=== PATIENT | male | born 1960 | race Caucasian/White ===

== ENCOUNTER 2017-06-12 19:07 | Observation (INO) | payer OTHER ==
[~2017-06-12] VITALS: Ht 177.8 cm; Wt 130.2 kg
[~2017-06-12 19:07] MED LIST: ACETAMINOPHEN-1 EAC1; ANDROGEL75 GM; EFFIENT10 MG PO; FLEXERIL; HYDROCODON-ACE1 EAC7 PO; LIPITOR20 MG PO; LO-DOSE ASPIRIN81 M1 PO; NITROSTAT0.4 M1 SUBLING; PANTOPRAZOLE SO40 M1 PO; SORINE 80 MG TA80 M1 PO; TOPROL; TOPROL XL50 MG PO; ZOFRAN4 MG PO
[2017-06-12 19:09] VITALS: BP 164/85
[2017-06-12 19:39] LABS: HEMATOCRIT 45.4 % (42.0-52.0); HEMOGLOBIN 15.6 gm/dL (14.0-18.0); MCH 29.6 pg (26.0-34.0); MCHC 34.4 g/dL (28.0-37.0); MPV 8.4 fl. (7.2-11.1); NUCLEATED RBCS 0 /100WBC; PLATELET COUNT* 165 thou/uL (150-400); RBC 5.28 mil/uL (4.50-6.00); RDW-CV 14.1 % (10.5-14.5); WBC 5.2 thou/uL (4.0-11.0)
[2017-06-12 19:57] LABS: ANION GAP 11 mmol/L (7-16); BUN 17 mg/dL (7-18); CALCIUM 8.7 mg/dL (8.5-10.1); CHLORIDE 103 mmol/L (98-107); CO2 29 mmol/L (21-32); CREATININE 1.1 mg/dL (0.6-1.3); GLUCOSE 105 mg/dL (70-99); POTASSIUM 3.7 mmol/L (3.5-5.1); SODIUM 143 mmol/L (136-145)
[2017-06-12 20:02] LABS: PROTIME 9.9 Seconds (9.20-11.50)
[2017-06-12 20:07] LABS: ALBUMIN 3.6 g/dL (3.4-5.0); ALKALINE PHOSPHATASE 98 U/L (46-116); LIPASE 136 U/L (73-393); NT-PRO BRAIN NAT PEPTIDE 59 pg/mL (<300); SGOT 27 U/L (15-37); SGPT 43 U/L (30-65); TOTAL BILIRUBIN 0.6 mg/dL (<0.1-1.0); TOTAL PROTEIN 7.6 g/dL (6.4-8.2); TROPONIN-I LEVEL <0.06 ng/mL (<0.06)
[2017-06-12 20:14] LABS: ABSOLUTE BASOPHILS 0.1 thou/uL (0.0-0.2); ABSOLUTE EOSINOPHILS 0.2 thou/uL (0.0-0.7); ABSOLUTE LYMPHOCYTES 1.7 thou/uL (0.8-5.3); ABSOLUTE MONOCYTES 0.5 thou/uL (0.0-1.2); ABSOLUTE NEUTROPHILS 2.7 thou/uL (1.6-8.1); PLATELET ESTIMATE ADEQUATE
[2017-06-12 20:15] LABS: ATYPICAL LYMPHS 23 %
[2017-06-12 22:40] LABS: INFLUENZA A ANTIGEN None Detected (None Detect); INFLUENZA B ANTIGEN None Detected (None Detect)
[2017-06-12 22:50] VITALS: BP 115/63
[2017-06-12 23:09] VITALS: BP 116/73
[2017-06-13] VITALS (7 sets, daily range): BP systolic 110–131; BP diastolic 69–77
--- NOTE | 2017-06-13 01:40 | NUR ---
ASSUMED CARE OF PT AT 2255 FROM THE ER. PT IS ALERT AND ORIENTED. VSS. PERRLA. NO COMPLAINTS OF PAIN. PT DENIES CHEST PAIN. PT IS IN SINUS RYTHM ON THE TELEMETRY. PT IS RESTING COMFORTABLY IN BED. RESPIRATIONS ARE EVEN AND NONLABORED. WILL CONTINUE TO MONITOR PT.
[2017-06-13 05:28] LABS: HEMATOCRIT 44.1 % (42.0-52.0); HEMOGLOBIN 15.2 gm/dL (14.0-18.0); MCH 29.4 pg (26.0-34.0); MCHC 34.5 g/dL (28.0-37.0); MPV 8.4 fl. (7.2-11.1); RBC 5.18 mil/uL (4.50-6.00); RDW-CV 14.4 % (10.5-14.5); WBC 6.5 thou/uL (4.0-11.0)
[2017-06-13 05:44] LABS: ALBUMIN 3.4 g/dL (3.4-5.0); CALCIUM 8.9 mg/dL (8.5-10.1); POTASSIUM 4.1 mmol/L (3.5-5.1); TOTAL BILIRUBIN 0.6 mg/dL (<0.1-1.0); TOTAL PROTEIN 6.7 g/dL (6.4-8.2)
--- NOTE | 2017-06-13 11:30 | NUR ---
MET WITH PT TO DISCUSS HOME SITUATION/DC PLANNING. PT LIVES WITH . IS INDEPENDENT AND ACTIVE, USES NO EQUIPMENT AND HASN'T HAD HH. HE WORKS OUTSIDE THE HOME. PLANS TO RETURN HOME AT DC. DENIES NEEDS
--- NOTE | 2017-06-13 12:00 | EKG ---
[place] [address] ELECTROCARDIOGRAM REPORT Name: MONIKA NOGUEIRA Room: [address] ADM IN M.R.#: [id number] Admission: 06/12/17 Attend Phys: Edward Quigley MD Discharge: Date of : 58 Report #: [id number] THIS REPORT FOR: //name// [facility] ED Test Date: 2017-06-12 Test Time: 19:10:33 Pat Name: MONIKA NOGUEIRA Department: Room: [facility] Gender: M Business Services Tech: PRETTY Littlejohn : 1960 Requested By: Radha Nolasco Order Number: [id number] MD: Elder Mcintyre Measurements Intervals [place] Rate: 73 P: 44 [place]: 192 QRS: 43 QRSD: 98 T: 8 QT: 393 QTc: 433 Interpretive Statements Sinus rhythm Multiple ventricular premature complexes Borderline T abnormalities, inferior leads Compared to ECG 03/22/2015 12:28:24 Ventricular premature complex(es) now present T-wave abnormality now present Atrial fibrillation no longer present Electronically Signed On 06-13-2017 12:00:23 RADIOLOGY RESIDENT by Elder Mcintyre [email or web address] <ELECTRONICALLY SIGNED> By: Elder Mcintyre MD, FAC 06/13/17 1200 09 09 Elder Mcintyre MD, [facility] /EPI
[2017-06-13] MEDS ORDERED: PANTOPRAZOLE SO40 M1 PO (13:45)
--- NOTE | 2017-06-13 14:40 | NUR ---
ASSUMED CARES OF PT AT 0700. PT IN BED, BED IN LOW AND LOCKED POSITION. CALL BUTTON AND PERSONAL ITEMS IN PT REACH. FALL PRECAUTIONS IN PLACE. PT USES CALL BUTTON APPROPRIATELY. PT A&O X4, DOCUMENT PROCESSING SPECIALIST TRACING NSR, LCTAB, VSS ON RA, PT DENIES PAIN AT THIS TIME. SKIN INTACT, AFEBRILE, PERRLA. HOURLY ROUNDS CONTINUE. PT UP INDEPENDENTLY, STEADY GAIT. LFA IV PATENT TO FLUSH, SALINE LOCKED. LABS WNL. PT CHANGED TO OBSERVAITON STATUS. PT CLEARED TO D/C TODAY AND RETURN THURSDAY OUTPATIENT FOR STRESS TEST. PT PROGRESSING TOWARDS GOAL. WILL CONTINUE TO MONITOR PT STATUS AND PROGRESS AND PREPARE PT FOR DISCHARGE HOME TODAY.
--- NOTE | 2017-06-13 19:22 | NUR ---
PT CLEARED FOR DISCHARGE. IV AND TELE REMOVED. PT REMAINS STABLE. PT EDUCATED ON DISCHARGE ORDERS, FOLLOW UP APPTS., MEDS, STROKE S/S AND RISKS. PRESCRIPTION CALLED INTO [facility] PER DR. HAMILTON ORDERS. ALL DISCHARGE DOCUMENTS SIGNED. SPOUSE AT PT SIDE. PT ESCORTED AMBULATORY BY NURSING STAFF TO FRONT OF HOSPITAL TO MEET SPOUSE IN CAR TO GO HOME. ALL QUESIONS ANSWERED. PT DISCHARGED IN STABLE CONDITION AT 1738.
--- NOTE | 2017-06-16 09:13 | CON ---
[address] [address] CONSULTATION Name: MONIKA NOGUEIRA Room: [address] Marilin Ramos#: [id number] Admission: 06/12/17 Attend Phys: Edward Quigley MD Discharge: 06/13/17 Date of : 58 Report #: [id number] THIS REPORT FOR: //name// CC: FRANCIS physician/PCP Edward Quigley REASON FOR CONSULTATION: Granulomatous disease, hilar lymphadenopathy. HISTORY OF PRESENT ILLNESS: The patient is a 57-year-old male patient, known history of coronary artery disease, status post stents. He presented to the Emergency Room and admitted with the chest pain of 2 days duration. The pain radiates to neck and jaw, but no radiation to other parts that was associated with diaphoresis, lightheadedness and feeling of occasional shortness of breath. He reported he took nitro before coming to the ER, and he felt better and the pain resolved. He denied any fever, chills, cough, blood in his stool or any other complaints. During his workup, he had a CT dissection protocol that demonstrated hilar lymphadenopathy and ground metastases. Pulmonary Services were consulted. The patient told me he had pneumonia almost 15 years ago. He grew up in [place] around [place], although he does not have a history of pneumonia as a teenager. 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 He does not remember having chest imaging in the past or CT scan. He denied shortness of breath, wheeze or cough. He smoked for 20 years, but quit almost 15 years ago. He is not on any oxygen or inhaler or diagnosis of lung disease. PAST MEDICAL HISTORY: Coronary artery disease as mentioned above, status post stents. Atrial fibrillation and stent placement. PAST SURGICAL HISTORY: Arthroscopic knee surgery in 1983, wisdom teeth surgery, appendectomy. HOME MEDICATIONS: Lipitor, nitroglycerin and aspirin. ALLERGIES: No known drug allergies. FAMILY HISTORY: Reviewed with the patient, noncontributory. SOCIAL HISTORY: Does not drink alcohol excessively. He smoked for 20 years, but quit almost 15-20 years ago. REVIEW OF SYSTEMS: Twelve system review in the patient negative other than as mentioned above. PHYSICAL EXAMINATION: VITAL SIGNS: On examination, his room air O2 saturation more than 90%, [place] [address] CONSULTATION Name: MONIKA NOGUEIRA Room: [address]#: [id number] Admission: 06/12/17 Attend Phys: Edward Quigley MD Discharge: 06/13/17 Date of : 58 Report #: [id number] pressure 110/69, pulse rate of 58, temperature 36.4. GENERAL: Lying in bed, not in pain, not in distress. HEAD: Normocephalic, atraumatic. EYES: Pupils are equal, reactive to light. Extraocular movement intact, not pale, no jaundice. ENT: External ear looks healthy and normal. Oral cavity: Moist mucous membrane. Mallampati of 2-3. NECK: Supple. No palpable lymph node. No palpable thyroid. Trachea central. CHEST: Clear to auscultation. No wheezes, no crackles. No tenderness. HEART: S1, S2, no murmur. ABDOMEN: Benign, soft, lax, nontender, positive bowel sounds. LOWER EXTREMITIES: No edema, no calf tenderness. SKIN: Normal for age and race. NEUROLOGIC: Moving 4 extremities spontaneously. No focal weakness. PSYCHIATRIC: Mood and affect appropriate. Good insight and judgment. LABORATORY DATA: His chest x-ray in the ER, stable compared to a chest x-ray in 2015, showed some old granulomatous changes. He had a CT of the chest that demonstrated paratracheal bilateral inguinal lymphadenopathy. The largest is 12 mm and in the hilar area 1.4 cm. His white blood count 5.2, hemoglobin 15.6, platelet 165. His INR is 1, and his creatinine is 1. IMPRESSION: 1. Chest pain. 2. Coronary artery disease. 3. Hilar lymphadenopathy. There is no previous chest imaging to compare; however, chest x-ray in comparison to 2015, it was stable. No change in the contour of the mediastinum. Putting things together with the granulomatous changes in his lung parenchyma and lymphadenopathy, this could be related to granulomatous disease; however, another inflammatory process or malignancy could not be ruled out with certainty. I think at this point we need to treat him for his acute issues with coronary artery disease, and I would recommend repeating CT chest with IV contrast after 3 months, likely will need to be followed even afterwards for a couple of years. I did explain to the patient that this could be related to granulomatous disease in the past; however, definitely he needs a followup CT imaging in 3 months from now and afterwards, likely for up to 2 years. I did mention to him that the differential diagnosis can include malignancy. He understood, and I did tell him he can get our office information and come for followup, and we can arrange for the CT scan if he wishes. He reported he will try to arrange through his primary care physician. [address] [address] CONSULTATION Name: MONIKA NOGUEIRA Room: [address] MEscobar.#: [id number] Admission: 06/12/17 Attend Phys: Edward Quigley MD Discharge: 06/13/17 Date of : 58 Report #: [id number] Thank you for the consult. No further recommendations. Please call for questions. <ELECTRONICALLY SIGNED> By: Melissa Amor MD 06/16/17 0913 0857 [id number] Amor MD /nt
--- NOTE | 2017-06-17 08:46 | CON ---
[address] [address] CONSULTATION Name: MONIKA NOGUEIRA Room: [address] Marilin Ramos#: [id number] Admission: 06/12/17 Attend Phys: Edward Quigley MD Discharge: 06/13/17 Date of : 58 Report #: [id number] THIS REPORT FOR: //name// CC: FAM physician/PCP Edward Quigley DATE OF SERVICE: 06/13/2017 REQUESTING PHYSICIAN: Edward Quigley MD PRIMARY ARC CUTTER: Rey Blevins M.D. CHIEF COMPLAINT: Chest pain, neck pain. HISTORY OF PRESENT ILLNESS: The patient is a 57-year-old man with a history of paroxysmal atrial fibrillation and coronary artery disease who had pain in his neck and top of his sternum, occurred at rest. It lasted several days actually and 4-6 hours at each time. It was associated with a little bit of nausea and congestion. He presented to the Emergency Room, his ECG did not show any acute ST segment abnormalities and overnight his cardiac troponin level has been normal. He denies any exertional symptoms. The symptoms were constant, fairly stable in the mild to moderate level. This morning, he has a very mild, 1-2/10, amount of neck pain associated with congestion. He feels like he may be coming down with the flu as he also has some cold sweats. He denies cough or overt fevers. His symptoms seem similar to his prior pre-PCI symptoms, but less severe by a significant amount. He has no symptoms of palpitations. He has a history of post-VT atrial fibrillation, which was resolved with sotalol. He has not had any palpitations since initiation of sotalol, and he presents in a sinus rhythm today. PAST MEDICAL HISTORY: Paroxysmal atrial fibrillation post-VT in 2015, which was noted in cardiac rehab and he was loaded with sotalol, and he has not had any recurrences. He has a history of a non-STEMI in 2015 with PCI with drug-eluting stents to the obtuse marginal vessel. He has hypertension, hyperlipidemia and mild obesity. He is not diabetic. No history of thyroid disease. HOME MEDICATIONS: Aspirin, atorvastatin 20 mg daily, nitroglycerin p.r.n., sotalol 120 [place] [address] CONSULTATION Name: MONIKA NOGUEIRA Room: [address] Marilin Ramos#: [id number] Admission: 06/12/17 Attend Phys: Edward Quigley MD Discharge: 06/13/17 Date of : 58 Report #: [id number] FAMILY HISTORY: Positive for high blood pressure, stroke. PAST SURGICAL HISTORY: No recent surgeries. REVIEW OF SYSTEMS: CENTRAL NERVOUS SYSTEM: No seizure or paralysis. GENERAL: No weight loss or fevers. RESPIRATORY: No cough or sputum production. CARDIOVASCULAR: No palpitations, no orthopnea, no PND. ENDOCRINE: No diabetes or thyroid problems. GASTROINTESTINAL: No nausea or vomiting. GENITOURINARY: No dysuria or hematuria. HEMATOLOGIC: No anemia or bleeding disorders. RENAL: No history of kidney disease, kidney failure. SKIN: No rashes. EYES: Denies any glasses, loss of vision. EARS, NOSE, THROAT AND MOUTH: No decreased hearing, bleeding from nose or dentures. SOCIAL HISTORY: He is a nonsmoker. PHYSICAL EXAMINATION: VITAL SIGNS: Blood pressure 110/69, pulse is 58, temperature is 36.6. GENERAL: This is a pleasant middle-aged male. He is mildly obese. He is pleasant, in no apparent distress. HEENT: Eyes, EOMs intact. No facial asymmetry. NECK: Supple. No jugular venous distention. Carotid upstrokes are normal. I cannot hear bruits. CARDIOVASCULAR: Regular. I cannot hear a murmur. LUNGS: Diminished breath sounds. ABDOMEN: Soft, nontender. No rebound or guarding. EXTREMITIES: No peripheral edema. SKIN: Warm and dry. PSYCHIATRIC: The patient has appropriate mood and affect. LABORATORY DATA: Electrocardiogram demonstrates a sinus rhythm with PVCs, normal ST segments x 1. Sodium 141, potassium is 4.1, chloride 105, CO2 is 27, BUN is 13, creatinine is 1.0. Troponin I is 0.06 x 3 sets. AST is 24, ALT is 38. No acute cardiopulmonary process on chest x-ray. IMPRESSION: 1. Chest pain. Symptoms have some components compatible with his angina, although the duration of his symptoms and normal cardiac markers indicate this is not a coronary syndrome. His ECGs are unremarkable. I would continue with his aggressive medical therapy and plan for stress testing on Thursday. This can be done as an outpatient if he is asymptomatic the remainder of his morning. [address] [address] CONSULTATION Name: MONIKA NOGUEIRA Room: [address] EDGARDO Ramos#: [id number] Admission: 06/12/17 Attend Phys: Edward Quigley MD Discharge: 06/13/17 Date of : 58 Report #: [id number] 2. Coronary artery disease. He will continue with aspirin medical therapy. We will check a stress test on Thursday. 3. Paroxysmal atrial fibrillation. He has been in sinus rhythm and this does not seem to be contributing to his symptoms. 4. Possible viral syndrome. He has some congestion type symptoms and chills, but no fevers. He may need supportive care for this. 5. Hyperlipidemia. Continue with statin therapy. <ELECTRONICALLY SIGNED> By: Elder Mcintyre MD, FACC 06/17/17 0846 1106 [id number] Mcintyre MD, FACC /nt
== END 2017-06-13 17:45 | disposition home or self-care (01) ==
LOC: M.ERS 19:07 → M.2W 21:50 → M.TBA-ER 21:50 → M.2W 22:21
PROVIDERS: Emergency Medicine; ADMIT Internal Medicine
DX: R07.89 Other chest pain (principal); I25.10 Atherosclerotic heart disease of native coronary artery without angina pectoris; I48.91 Unspecified atrial fibrillation; D71 Functional disorders of polymorphonuclear neutrophils; R59.0 Localized enlarged lymph nodes; K21.0 Gastro-esophageal reflux disease with esophagitis; K22.70 Barrett's esophagus without dysplasia; Z95.5 Presence of coronary angioplasty implant and graft; Z77.090 Contact with and (suspected) exposure to asbestos; Z90.89 Acquired absence of other organs

== ENCOUNTER → 2017-09-28 | Outpatient (CLI) | payer OTHER | LOC: M.CT 16:47 | DX: I25.10 Atherosclerotic heart disease of native coronary artery without angina pectoris (principal); R59.0 Localized enlarged lymph nodes ==

== ENCOUNTER → 2020-03-19 | Outpatient (CLI) | payer OTHER | LOC: M.LAB 15:05 | PROVIDERS: ATTEND Internal Medicine Cardiovascular Disease | DX: R53.83 Other fatigue (principal); Z20.828 Contact with and (suspected) exposure to other viral communicable diseases ==

== ENCOUNTER → 2020-10-15 | Outpatient (CLI) | payer OTHER ==
--- NOTE | 2020-10-15 16:58 | CARDNUC ---
[place] [address] CARDIAC NUCLEAR IMAGING REPORT Name: MONIKA NOGUEIRA [id number] Admission: 10/15/20 Attend Phys: Rey Blevins, Discharge: Date of : 58 Date of Service: 10/15/20 1657 Report #: [id number] THIS REPORT FOR: cc: Hemant Strickland,Hemant Ayala,Rey Kat MD [facility] ~ APPROVED REPORT Study performed: 10/15/2020 09:22:54 Exam: Nuclear Stress Test Indication: DYSPNEA Patient Location: Out-Patient Stress Tech: Raquel Griffin Stress Nurse: STACEY MOTA NM Tech:JENNIFER Langston Ht: 5 ft 10 in Wt: 280 lbs BSA: 2.41 m2 HR: 60 bpm BP: 127/96 mmHg BMI: 40.17 Medical History Medical History: DYSPNEA, HX AFLUTTER, PAT, VT, HX CARDIOVERSION, FATIGUE, KNEE SURGERY, HTN, HLD, CAD s/p CT, CAD s/p stent, Obesity, PAST SMOKER. Medications: SOTALOL, ASA 81, ATORVASTATIN, NTG Allergies: NKDA Cardiac Risk Factors: Tobacco History (Former), Age, Hyperlipidemia, HTN, Obesity, HX AFlutter, PAT, Cardioversion, VT. Previous Cardiac Procedures: Myocardial infarction, PCI, Cardioversion Pretest Chest Pain Characteristics: No chest pain Exercise History: Indeterminate Physical Disabilities: OBESITY, KNEE PAIN. Meds Held (24 hrs): NTG Stress Test Details Stress Test: Pharmacologic stress was paired with low level exercise. Reason for pharmacologic stress test: OBESITY, KNEE PAIN.. HR Resting HR: 60 bpm Max Heart Rate (APMHR): 159 bpm Max HR Achieved: 90 bpm Target HR (85% APMHR): 135 [place] [address] CARDIAC NUCLEAR IMAGING REPORT Name: MONIKA NOGUEIRA Room: [facility]#: [id number] Admission: 10/15/20 Attend Phys: Rey Blevins, Discharge: Date of : 58 Date of Service: 10/15/20 1657 Report #: [id number] % of APMHR: 56 Recovery HR: 70 bpm BP Resting BP: 127/96 mmHg Max BP: 142/76 mmHg ECG Resting ECG: Sinus Rhythm Stress ECG: Sinus Rhythm ST Change: None Arrhythmia: None Recovery ECG: Sinus Rhythm Recovery ST Change: None Recovery Arrhythmia: None Clinical Reason for Termination: Completed protocol Stress Symptoms: DYSPNEA, LIGHTHEADEDNESS. Exercise duration: 3 min 59 sec Exercise capacity: 2.30 METs Patient tolerated Lexiscan fusion without significant cardiac symptoms. Nurse Comments A 60 YEAR OLD MALE TOLERATED A WALKING LEXISCAN NUCLEAR STRESS TEST. RECOVERY UNREMARKABLE. PATIENT WAS STABLE AND STATED HE FELT GOOD WHEN ESCORTED TO NUCLEAR MEDICINE FOR IMAGING. Stress ECG Conclusion The baseline twelve-lead EKG shows sinus rhythm without significant ST segment or T wave abnormality. EKGs post Lexiscan infusion show sinus rhythm with no significant ST segment or T wave changes when compared to baseline. There were no stress-induced arrhythmias. NM EXAM: Myocardial Perfusion REST/STRESS Imaging Protocol: Rest Tc-99m/Stress Tc-99m 1 day Resting Data Rest SPECT myocardial perfusion imaging was performed in supine position 30 minutes following the intravenous injection of 9.5 mCi of Tc-99m Sestamibi. Time of rest injection: 08 Date: 10/15/2020 The images were gated to evaluate regional wall motion and calculate left ventricular ejection fraction. Administration Route: [place] [address] CARDIAC NUCLEAR IMAGING REPORT Name: MONIKA NOGUEIRA Room: [facility] Ramos#: [id number] Admission: 10/15/20 Attend Phys: Rey Blevins, Discharge: Date of : 58 Date of Service: 10/15/20 1657 Report #: [id number] Administration Site: Right Pharmacologic Stress Pharmacologic stress test was performed by injecting Regadenoson 0.4 mg IV push followed by the intravenous injection of 31.1 mCi of Tc-99m Sestamibi. Time of stress injection: 934 Date: 10/15/2020 Administration Route: IV Administration Site: Right AC Gated Stress SPECT was performed 40 minutes after stress injection. The images were gated to evaluate regional wall motion and calculate left ventricular ejection fraction. Study Quality Study: Fair Artifact: Moderate Diaphragmatic artifact Wall Motion Normal left ventricular wall motion. Nuclear Conclusion ECG Findings: negative for ischemia Clinical Findings: negative for ischemia Nuclear Findings: negative for ischemia Exercise Capacity: not assessed Left Ventricular Function: normal Risk Study: low Perfusion study showed no evidence of ischemia. Global LV systolic function appears normal on gated studies. This is a low risk study. <Conclusion> The baseline twelve-lead EKG shows sinus rhythm without significant ST segment or T wave abnormality. EKGs post Lexiscan infusion show sinus rhythm with no significant ST segment or T wave changes when compared to baseline. There were no stress-induced arrhythmias. <ELECTRONICALLY SIGNED> By: Rey Blevins MD, FACC 10/15/20 [phone] Rey Blevins MD, FACC /INF
== END ==
LOC: M.NUC 10-05 09:28
PROVIDERS: ATTEND Internal Medicine Cardiovascular Disease
DX: I25.10 Atherosclerotic heart disease of native coronary artery without angina pectoris (principal); R06.00 Dyspnea, unspecified; I10 Essential (primary) hypertension; E78.2 Mixed hyperlipidemia

== ENCOUNTER → 2021-02-15 | Outpatient (CLI) | payer OTHER | LOC: M.ULTRA 09:14 | PROVIDERS: ATTEND Specialist | DX: M79.89 Other specified soft tissue disorders (principal) ==

== ENCOUNTER → 2021-03-25 | Outpatient (CLI) | payer OTHER | LOC: M.LAB 10:56 | PROVIDERS: ATTEND Surgery | DX: Z01.812 Encounter for preprocedural laboratory examination (principal); Z20.822 Contact with and (suspected) exposure to COVID-19 ==

== ENCOUNTER 2021-05-24 09:42 | Observation (INO) | payer OTHER ==
[~2021-05-24] VITALS: Ht 180.3 cm; Wt 126.1 kg
[2021-05-24 09:48] VITALS: BP 125/85
[2021-05-24 10:43] LABS: URINE BILIRUBIN NEGATIVE (Negative); URINE BLOOD NEGATIVE (Negative); URINE CLARITY CLEAR; URINE COLOR YELLOW; URINE GLUCOSE-RANDOM NEGATIVE (Negative); URINE KETONES NEGATIVE (Negative); URINE LEUKOCYTES NEGATIVE (Negative); URINE NITRITE NEGATIVE (Negative); URINE PROTEIN NEGATIVE (Negative); URINE SPECIFIC GRAVITY <= 1.005 (1.005-1.030); URINE UROBILINOGEN 0.2 E.U./dl (0.2-1.0)
[2021-05-24 11:30] LABS: ABSOLUTE BASOPHILS 0.1 thou/uL (0.0-0.2); ABSOLUTE EOSINOPHILS 0.1 thou/uL (0.0-0.7); ABSOLUTE LYMPHOCYTES 1.3 thou/uL (0.8-5.3); ABSOLUTE MONOCYTES 0.8 thou/uL (0.0-1.2); ABSOLUTE NEUTROPHILS 3.5 thou/uL (1.6-8.1); EOSINOPHILS 2.5 %; HEMATOCRIT 42.1 % (42.0-52.0); HEMOGLOBIN 14.3 gm/dL (14.0-18.0); LYMPHOCYTES 22.1 %; MCH 29.7 pg (26.0-34.0); MCHC 33.9 g/dL (28.0-37.0); MCV 87.5 fL (80.0-100.0); MONOCYTES 13.1 %; MPV 7.6 fl. (7.2-11.1); NUCLEATED RBCS 0 /100WBC; PLATELET COUNT* 203 thou/uL (150-400); POLYS 61.3 %; RBC 4.81 mil/uL (4.50-6.00); RDW-CV 14.4 % (10.5-14.5); WBC 5.7 thou/uL (4.0-11.0)
[2021-05-24 11:41] LABS: CALCIUM 8.2 mg/dL (8.5-10.1); CREATININE 0.8 mg/dL (0.6-1.3); POTASSIUM 4.1 mmol/L (3.5-5.1)
[2021-05-24 17:51] VITALS: BP 109/66
[2021-05-24 22:38] VITALS: BP 97/64
[2021-05-25 02:18] VITALS: BP 100/70
[2021-05-25 10:00] VITALS: BP 116/61
--- NOTE | 2021-05-25 12:13 | EKG ---
[place] [address] ELECTROCARDIOGRAM REPORT Name: MONIKA NOGUEIRA Room: [address] M.R.#: [id number] Admission: 05/24/21 Attend Phys: Debbi Sandy Discharge: Date of : 58 Date of Service: 05/24/21 1014 Report #: [id number] THIS REPORT FOR: //name// [facility] ED Test Date: 2021-05-24 Test Time: 10:14:54 Pat Name: MONIKA NOGUEIRA Department: Room: [place] [address] Gender: M Gold Miner: : 1960 Requested By: Tomas Lopez Order Number: [id number] MD: Rey Blevins Measurements Intervals [place] Rate: 96 P: [place]: QRS: 19 QRSD: 94 T: 3 QT: 391 QTc: 495 Interpretive Statements Atrial fibrillation Borderline prolonged QT interval Compared to ECG 06/12/2017 19:10:33 Sinus rhythm no longer present Ventricular premature complex(es) no longer present T-wave abnormality no longer present Electronically Signed On 05-25-2021 12:13:24 PREHEMMER by Rey Blevins [email or web address] <ELECTRONICALLY SIGNED> By: Rey Blevins MD, FACC 05/25/21 1213 1014 1014 Rey Blevins MD, FACC /EPI
[2021-05-25 16:27] VITALS: BP 106/69
[2021-05-25 16:52] VITALS: BP 124/83
--- NOTE | 2021-05-25 18:45 | NUR ---
PT ADMITTED TO ROOM 218 VIA CART FROM ED AT APPROXIMATELY 1630. PT ORIENTED TO ROOM AND CALL LIGHT. ADMISSION ASSESSMENT AND HISTORY CHARTED. PT A&0X4, TRACING SR ON THE INVESTMENT ACCOUNTANT. RATE IN THE 70'S. ON RA SAT UPPER 90'S. DENIES ANY SHORTNESS OF BREATH OR PAIN. PT UP AD JUAN. PT ON SOTALOL LOAD. PROBABLE DISCHARGE HOME TOMORROW 05/26. AT BEDSIDE AND UPDATED ON CURRENT PLAN OF CARE. MEDS PER JUN. CALL LIGHT WITHIN REACH. WILL CONTINUE PLAN OF CARE.
[2021-05-25 20:00] VITALS: BP 122/80
[2021-05-26 01:48] VITALS: BP 105/62
--- NOTE | 2021-05-26 04:43 | NUR ---
PATIENT SLEPT WELL DURING THIS SHIFT. PT UP TO BATHROOM WITH STEADY GAIT. PT IS SALINE LOCKED AND ON ROOM AIR. DENIES NEEDS AT THIS TIME. FREQUENTLY USED ITEMS AND CALL LIGHT WITHIN REACH. SIDERAILS UPX2. WILL CONTINUE TO MONITOR.
[2021-05-26 05:25] VITALS: BP 100/66
[2021-05-26 08:05] VITALS: BP 114/76
[2021-05-26] MEDS ORDERED: SORINE 80 MG TA80 M1 PO (12:35)
[2021-05-26] MEDS ORDERED: ELIQUIS5 MG PO (12:35)
[2021-05-26 12:38] VITALS: BP 114/76
[2021-05-26 12:57] VITALS: BP 114/76
--- NOTE | 2021-05-26 13:16 | NUR ---
ORDERS NOTED FOR OKAY TO D/C TO HOME THIS SHIFT PER AND THIS SHIFT- ECHO TO BE ARRANGED OP- IV TO LEFT FA AND PERSONNEL SPECIALIST D/C'D PRIOR TO D/C- D/C EDUCATION/TEACHING/NEEDED FOLLOW UP'S COMMUNICATED TO PT WITH VERBAL UNDERSTANDING NOTED PER PT- WRITTEN EDUCATION PROVIDED TO PT WITH ALL QUESTIONS AND CONCERNS ADDRESSED PRIOR TO D/C- BELONGINGS PACKED AND ACCOUNTED FOR PER PT AND - PT ESCORTED PER TECH VIA W/C WITH BELONGINGS; AT SIDE TO VEHICLE AT 1315- NO PROBLEMS TO NOTE AT TIME OF D/C
[2021-05-26 13:19] VITALS: BP 114/76
--- NOTE | 2021-05-29 07:35 | CON ---
[address] [address] CONSULTATION Name: MONIKA NOGUEIRA Room: [address] Marilin Ramos#: [id number] Admission: 05/24/21 Attend Phys: Fanta Joe Discharge: 05/26/21 Date of : 58 Report #: [id number] THIS REPORT FOR: cc: Hemant Strickland,Rey Pina MD [facility] ~ cc: Hemant Strickland DO DATE OF CONSULTATION: 05/25/2021 CARDIOLOGY CONSULT INDICATION: Recurrent atrial fibrillation. HISTORY OF PRESENT ILLNESS: The patient is a very pleasant 60-year-old gentleman well known to myself. He presented to the hospital with complaints of bilateral arm weakness, visual blurriness, numbness and tingling in his arms, lightheadedness and dizziness. He denied any chest pain or shortness of breath. He was having some dyspnea on exertion. He noted his heart rhythm to be irregular. He is in atrial fibrillation with a moderately rapid ventricular response rate. Thus far, workup has been unremarkable with the exception of the finding of atrial fibrillation. CT of the head showed no significant vascular stenosis and was felt to be essentially normal. PAST MEDICAL HISTORY: 1. Coronary artery disease with percutaneous coronary intervention to the circumflex in 2014. 2. Grade I diastolic dysfunction. 3. Paroxysmal atrial fibrillation. 4. Hypertension. 5. Dyslipidemia. CURRENT MEDICATIONS: Aspirin 81 mg daily, Lipitor 40 mg daily, Voltaren gel topically as directed, Flonase nasal spray daily, Protonix 40 mg daily, sotalol 120 mg b.i.d. ALLERGIES: None documented. SOCIAL HISTORY: The patient quit smoking many years ago. He does not drink alcohol. FAMILY HISTORY: [place] [address] CONSULTATION Name: MONIKA NOGUEIRA Room: [address] Marilin Ramos#: [id number] Admission: 05/24/21 Attend Phys: Fanta Joe Discharge: 05/26/21 Date of : 58 Report #: [id number] REVIEW OF SYSTEMS: As per HPI, otherwise unremarkable. PHYSICAL EXAMINATION: VITAL SIGNS: Blood pressure 100/70, pulse is in the 110s and irregular. GENERAL: This is a pleasant gentleman in no distress. Mood and affect appropriate. HEENT: Extraocular muscles intact. Mucous membranes moist. NECK: Shows no jugular venous distention. CHEST: Reveals clear lung howard without wheezes or rales. CARDIAC: Reveals an irregularly irregular rhythm without gallop or murmur. ABDOMEN: Reveals normal bowel sounds. The abdomen is soft, nontender. EXTREMITIES: Shows no edema. SKIN: Dry. DIAGNOSTIC DATA: A 12-lead EKG shows atrial fibrillation with a rapid ventricular response rate. I do not appreciate acute ST or T-wave abnormality. Chest x-ray shows no acute cardiopulmonary abnormality. LABORATORY DATA: Reviewed. Sodium 142, potassium 4.1, chloride 108, bicarbonate 30, BUN 13, creatinine 0.8, serum glucose 104. LFTs are within normal limits. High sensitivity troponin is 9. NT-proBNP 1196. Coags are within normal limits. White blood cell count 5.7, hemoglobin 14.3, platelet count 203,000. IMPRESSION AND RECOMMENDATIONS: 1. New onset/recurrent atrial fibrillation with rapid ventricular response rate. We will increase sotalol dose and start Eliquis 5 mg twice daily. Once rate control is achieved, we will consider outpatient cardioversion after 4 weeks of anticoagulation. 2. Coronary artery disease, presently stable. Continue daily aspirin and risk factor modification. 3. Hypertension. Blood pressure low normal presently. May need to adjust medications. 4. Dyslipidemia. The patient has been at goal on current dose of atorvastatin. We will continue. <ELECTRONICALLY SIGNED> By: Rey Blevins MD, FACC 05/29/21 [id number] [id number] Blevins MD, FACC /nt
== END 2021-05-26 13:15 | disposition home or self-care (01) ==
LOC: M.ERS 09:42 → M.TBA-ER 15:23 → M.2W 05-25 16:34
PROVIDERS: Emergency Medicine; ADMIT Internal Medicine; ATTEND Internal Medicine
DX: I48.91 Unspecified atrial fibrillation (principal); R42 Dizziness and giddiness; H53.8 Other visual disturbances; Z20.822 Contact with and (suspected) exposure to COVID-19; G45.9 Transient cerebral ischemic attack, unspecified; I10 Essential (primary) hypertension; E78.5 Hyperlipidemia, unspecified; G47.33 Obstructive sleep apnea (adult) (pediatric); R20.0 Anesthesia of skin; Z98.890 Other specified postprocedural states; Z79.82 Long term (current) use of aspirin; Z79.899 Other long term (current) drug therapy

== ENCOUNTER → 2021-06-04 | Outpatient (CLI) | payer OTHER ==
[~2021-06-04] MED LIST changes: +ELIQUIS5 MG PO
--- NOTE | 2021-06-04 13:45 | 2DMMODE ---
[place] [address] 2 D/M-MODE ECHOCARDIOGRAM Name: MONIKA NOGUEIRA Room: [facility]#: [id number] Admission: 06/04/21 Attend Phys: Clarice Gary, Discharge: Date of : 58 Date of Service: 06/04/21 1344 Report #: [id number] THIS REPORT FOR: cc: Hemant Strickland Vincent R. DO Liston, Michael J. MD [facility] ~ APPROVED REPORT Study performed: 06/04/2021 10:13:35 EXAM: Comprehensive 2D, Doppler, and color-flow Echocardiogram Patient Location: Out-Patient BSA: 2.40 HR: 57 bpm BP: 146/80 mmHg Other Information Study Quality: Good Indications TIA 2D Dimensions IVSd: 11.70 (7-11mm) LVOT Diam: 20.89 (18-24mm) LVDd: 55.05 mm PWd: 11.07 (7-11mm) Ascending Ao: 37.29 (22-36mm) LVDs: 36.68 (25-40mm) Aortic Root: 29.12 mm Volumes Left Atrial Volume (Systole) LA ESV Index: 22.60 mL/m2 Aortic Valve AoV Peak Michael.: 1.22 m/s AO Peak Gr.: 5.98 mmHg LVOT Max P.50 mmHg AO Mean Gr.: 3.50 mmHg LVOT Mean P.20 mmHg LVOT Max V: 0.79 m/s AO V2 VTI: 31.19 cm LVOT Mean V: 0.50 m/s MAKEDA (VTI): 2.30 cm2 LVOT V1 VTI: 20.90 cm Mitral Valve E/A Ratio: 1.31 [place] [address] 2 D/M-MODE ECHOCARDIOGRAM Name: JEROMONIKATERESA TATUM [id number] Admission: 06/04/21 Attend Phys: Clarice Gary, Discharge: Date of : 58 Date of Service: 06/04/21 1344 Report #: [id number] MV Decel. Time: 207.19 ms MV E Max Michael.: 1.02 m/s MV PHT: 60.09 ms MVA (PHT): 3.66 cm2 TDI E/Lateral E': 10.20 E/Medial E': 11.33 Medial E' Michael.: 0.09 m/s Lateral E' Michael.: 0.10 m/s Pulmonary Valve PV Peak Michael.: 0.87 m/s PV Peak Gr.: 3.01 mmHg Tricuspid Valve RAP Estimate: 5.00 mmHg TR Peak Gr.: 23.78 mmHg RVSP: 28.78 mmHg PA Pressure: 28.78 mmHg Left Ventricle The left ventricle is normal size. There is normal LV segmental wall motion. There is normal left ventricular wall thickness. Left ventricular systolic function is normal. LVEF is 60-65%. Transmitral Doppler flow pattern suggests impaired LV relaxation. Right Ventricle The right ventricle is normal size. The right ventricular systolic function is normal. Atria The left atrium size is normal. Injection of bubbles documented no interatrial shunt. The right atrium size is normal. Aortic Valve The aortic valve is normal in structure. No aortic regurgitation is present. There is no aortic valvular stenosis. Mitral Valve The mitral valve is normal in structure. Mild mitral regurgitation. No evidence of mitral valve stenosis. Tricuspid Valve The tricuspid valve is normal in structure. The RVSP is 30-35 mmHg. Pulmonic Valve The pulmonary valve is normal in structure. [place] [address] 2 D/M-MODE ECHOCARDIOGRAM Name: MONIKA NOGUEIRA Room: [facility]#: [id number] Admission: 06/04/21 Attend Phys: Clarice Gary, Discharge: Date of : 58 Date of Service: 06/04/21 1344 Report #: [id number] valvular regurgitation. Great Vessels The aortic root is normal in size. IVC is normal in size and collapses >50% with inspiration. Pericardium There is no pericardial effusion. <Conclusion> The left ventricle is normal size. There is normal left ventricular wall thickness. Left ventricular systolic function is normal. LVEF is 60-65%. Transmitral Doppler flow pattern suggests impaired LV relaxation. Mild mitral regurgitation. The RVSP is 30-35 mmHg. IVC is normal in size and collapses >50% with inspiration. Injection of bubbles documented no interatrial shunt. <ELECTRONICALLY SIGNED> By: Rey Blevins MD, FACC 06/04/21 1344 1344 1344 Rey Blevins MD, FACC /INF
== END ==
LOC: M.CRD 08:54
PROVIDERS: ATTEND Psychiatry & Neurology Neurology
DX: I34.0 Nonrheumatic mitral (valve) insufficiency (principal)